=== PATIENT | female | born 1985 | race Caucasian/White ===

== ENCOUNTER 2020-05-16 12:17 | Emergency (ER) | payer OTHER ==
[~2020-05-16] VITALS: Ht 152.4 cm; Wt 76.2 kg
[2020-05-16] MEDS ORDERED: ESCI10TA10 PO (13:23)
--- NOTE | 2020-05-16 13:28 | NUR ---
Ice pack provided for pain behind left eye as requested by pt. Small amount of bile remains unchanged and pt reminded that ice chips and water are not allowed until after the MD assesses her and states that it is okay to provide those.
[2020-05-16] MEDS ORDERED: METOCLOPRAMIDE 5 MG/ML, 2ML ONE (13:45)
[2020-05-16] MEDS ORDERED: DIPHENHYDRAMINE 50 MG/ML, 1ML ONE (13:45)
--- NOTE | 2020-05-16 13:49 | NUR ---
IV started, fluids up and running without issue at wide open rate, and medications given IVP as ordered. Lights turned off for photophobia and folded pillow case remains over eyes since IV start when lights had to be turned on. Moaning and restlessness stopped as soon as IV start procedure was being set up near her and has not returned, even before IV meds given.
[2020-05-16] MEDS ORDERED: METOCLOPRAMIDE 5 MG/ML, 2ML IVPush ONE (14:00)
[2020-05-16] MEDS ORDERED: SODIUM CHLORIDE 0.9% 1,000ML IVBOLUS ONE (14:00)
[2020-05-16] MEDS ORDERED: DIPHENHYDRAMINE 50 MG/ML, 1ML IVPush ONE (14:00)
--- NOTE | 2020-05-16 14:42 | NUR ---
Pt reassessed at this time. Sleeping, drowsy but arousable. IV saline locked.
--- NOTE | 2020-05-16 14:45 | NUR ---
Pt assisted off monitor inorder to use restroom. Gait without disburbance noted. States pain is now 4/10 after meds and liter bolus.
--- NOTE | 2020-05-16 15:00 | NUR ---
Report given to PEMA Gonzalez and care transferred.
--- NOTE | 2020-05-16 15:07 | NUR ---
REPORT RC'VD FROM CLYDE MCADAMS. PT LYING IN GURNEY, AWAKE, NO SIGNS OF DISTRESS AT THIS TIME. STATES SHE'S DOING FINE. IV BOLUS COMPLETED. CHART UP FOR RECHECK.
[2020-05-16] MEDS ORDERED: KETOROLAC 30 MG/1 ML ONE (15:40)
[2020-05-16 15:46] VITALS: BP 123/103
--- NOTE | 2020-05-16 15:58 | NUR ---
D/C INSTRUCTIONS, MEDS & F/U APPT RV'WD WITH PT, SHE VERBALIZES UNDERSTANDING. PT AMBULATED OUT OF ED WITHOUT DIFFICULTY, STATES FAMILY WILL PICK HER UP.
[2020-05-16] MEDS ORDERED: KETOROLAC 30 MG/1 ML IVPush ONE (16:00)
== END 2020-05-16 15:59 | disposition home or self-care (01) ==
LOC: ED 14:53
DX: R51.9 Headache, unspecified (principal); R11.2 Nausea with vomiting, unspecified; I10 Essential (primary) hypertension
CPT/HCPCS: 96361; 96374; 96375; 99284; J1200; J1885; J2765; J7030

== ENCOUNTER 2020-05-16 16:14 | Emergency (ER) | payer OTHER ==
[~2020-05-16] VITALS: Ht 152.4 cm; Wt 77.6 kg
[~2020-05-16 16:14] MED LIST: ESCI10TA10 PO
[2020-05-16] MEDS ORDERED: PROMETHAZINE 25 MG/ML, 1ML ONE (17:17)
[2020-05-16 17:20] VITALS: BP 156/85
--- NOTE | 2020-05-16 17:20 | NUR ---
break rn- medicated as ordered
[2020-05-16 17:30] LABS: BASOPHILS % (AUTO) 0 % (0-1); EOSINOPHILS % (AUTO) 0 % (1-7); LYMPHOCYTES % (AUTO) 12 % (22-44); MEAN CORPUSCULAR HEMOGLOBIN 30.3 pg (27.0-34.8); MEAN CORPUSCULAR HGB CONC 34.2 g/dL (32.4-35.8); MEAN PLATELET VOLUME 7.8 fL (7.4-10.4); MONOCYTES % (AUTO) 3 % (2-9); NEUTROPHILS % (AUTO) 85 % (42-75); PLATELET COUNT 349 x10^3/uL (130-400); RED BLOOD COUNT 4.46 x10^6/uL (3.82-5.3)
[2020-05-16] MEDS ORDERED: PROMETHAZINE 25 MG/ML, 1ML IM ONE (17:30)
[2020-05-16 17:33] LABS: ANION GAP 6 mmol/L (5-15); CALCIUM 8.8 mg/dL (8.5-10.1); CHLORIDE 108 mmol/L (98-107); CREATININE 0.79 mg/dL (0.55-1.02)
[2020-05-16 17:40] LABS: MD NO
--- NOTE | 2020-05-16 17:44 | NUR ---
pt to [place]
[2020-05-16] MEDS ORDERED: ACETAMINOPHEN 500 MG TABLET ONE (18:26)
[2020-05-16] MEDS ORDERED: DEXAMETHASONE 4 MG TABLET ONE (18:26)
[2020-05-16] MEDS ORDERED: ACETAMINOPHEN 500 MG TABLET PO ONE (18:30)
[2020-05-16] MEDS ORDERED: DEXAMETHASONE 4 MG TABLET PO ONE (18:30)
== END 2020-05-16 18:41 | disposition home or self-care (01) ==
LOC: ED 18:35
DX: R51.9 Headache, unspecified (principal)
CPT/HCPCS: 36415; 70450; 80048; 85025; 96372; 99284; J2550